=== PATIENT | male | born 1985 | race Caucasian/White ===

== ENCOUNTER 2020-11-08 10:04 | Emergency (ER) | payer BC, OTHER ==
[~2020-11-08] VITALS: Ht 172.7 cm; Wt 61.2 kg
[2020-11-08] MEDS ORDERED: GLUCAGON EMERGENCY 1 MG/KIT ONE (10:16)
--- NOTE | 2020-11-08 10:18 | ED General ---
General Chief Complaint: Foreign Body Stated Complaint: FOOD LODGED IN THROAT Source of Information: Patient History of Present Illness Date Seen by Provider: Nov 08, 2020 Time Seen by Provider: 10:13 Initial Comments 35-year-old male presents with food obstruction of his esophagus since 6 PM yesterday after dinner. States he ate a piece of meat and did not chew it very well and felt it stick in his throat. Denies any difficulty breathing, but since that time he has tried multiple different things to drink to try to get it to go through, but has been unsuccessful. States he cannot swallow his own spit and water comes right back up after a small swallow. Has had some near blockages before in the past as he states he typically does not chew his food well, but never has had anything to this extent that he was not able to get to go down himself. Denies any medical problems, he is on no medication. He does smoke. Allergies and Home Medications Allergies Coded Allergies: No Known Drug Allergies (Unverified , 11/08/20) Patient Home Medication List Home Medication List Reviewed: Yes Review of Systems Review of Systems Constitutional: No fever, No malaise, No weakness Respiratory: No cough, No short of breath, No stridor, No wheezing Cardiovascular: chest pain (from food stuck in throat); No edema, No palpitations Gastrointestinal: see HPI; No abdominal pain; dysphagia; No nausea; vomiting Musculoskeletal: No back pain, No joint pain Skin: No change in color, No rash Past Zmdxchk-Atheaw-Kxyayw Hx Past Med/Social Hx: Reviewed Nursing Past Med/Soc Hx Patient Social History Alcohol Use: Denies Use Smoking Status: Current Everyday Smoker Physical Exam Vital Signs Vital Signs - First Documented 11/08/20 10:09 Temp 37.0 Pulse 116 Resp 18 B/P (MAP) 138/100 (113) Pulse Ox 97 O2 Delivery Room Air Capillary Refill : Height, Weight, BMI Height: '" Weight: lbs. oz. kg; BMI Method: General Appearance: No Apparent Distress, WD/WN HEENT: PERRL/EOMI, Normal ENT Inspection Neck: Normal Inspection, Non Tender, Supple Respiratory: Chest Non Tender, Lungs Clear, Normal Breath Sounds, No Accessory Muscle Use, No Respiratory Distress Cardiovascular: Regular Rate, Rhythm, No Edema, No JVD, Normal Peripheral Pulses Gastrointestinal: Non Tender, Soft; No Distended, No Guarding, No Mass, No Rebound, No Tenderness Neurologic/Psychiatric: Alert, Oriented x3, No Motor/Sensory Deficits, Normal Mood/Affect Progress/Results/Core Measures Suspected Sepsis SIRS Temperature: Pulse: Respiratory Rate: Blood Pressure / Mean: Results/Orders My Orders Orders - RUY TYLER DO Glucagon Emergency Kit (Glucagon Emergen (11/08/20 10:30) Glucagon Emergency Kit (Glucagon Emergen (11/08/20 10:16) Medications Given in ED Current Medications Medications Dose Ordered Sig/Isabel Route Start Time Stop Time Status Last Admin Dose Admin Glucagon 1 mg ONCE ONCE IM 11/08/20 10:30 11/08/20 10:58 DC 11/08/20 10:26 1 MG Vital Signs/I&O 11/08/20 10:09 Temp 37.0 Pulse 116 Resp 18 B/P (MAP) 138/100 (113) Pulse Ox 97 O2 Delivery Room Air Capillary Refill : Progress Note : Progress Note Patient did not want an IV for a trial of glucagon, so given IV......no success. Still vomiting up sips of water. Departure Communication (Admissions) Time/Spoke to Consulting Phy: 10:[address] Valente (gen surg) - advised pt to come to [facility] to outpt surg for endoscopy. Patient has a family member to drive him by POV. Plans to go home after procedu re. Explained to pt and he expressed understanding. Impression Primary Impression: Esophageal obstruction due to food impaction Disposition: 30 STILL A PATIENT Condition: Stable Departure-Patient Inst. Referrals: RENATA ROYAL APRN (PCP) Primary Care Physician [facility] (Family) Primary Care Physician RUY TYLER DO Nov 08, 2020 10:18
[2020-11-08] MEDS ORDERED: GLUCAGON EMERGENCY 1 MG/KIT IM ONE (10:30)
[2020-11-08 11:00] VITALS: BP 144/88
[2020-11-08] MEDS ORDERED: ONDANSETRON 4 MG/2 ML (SDV) Z0FRAN ONE (11:34)
[2020-11-08] MEDS ORDERED: ROCURONIUM 10 MG/ML 5 ML SYRINGE IV ONE (11:34)
[2020-11-08] MEDS ORDERED: SUCCINYLCHOLINE INJ 100 MG/5 ML SYR/VIAL ONE (11:34)
[2020-11-08] MEDS ORDERED: PROPOFOL INJECTION 0 ML IV ONE (11:34)
[2020-11-08] MEDS ORDERED: fentaNYL INJ 100 MCG/2 ML AMP ONE (11:34)
[2020-11-08] MEDS ORDERED: MIDAZOLAM 2 MG/2 ML (VERSED) VIAL ONE (11:34)
[2020-11-08] MEDS ORDERED: SEVOFLURANE (ULTANE) 15 ML INHAL SOLN ONE (11:34)
== END 2020-11-08 11:00 | disposition left against medical advice (07) ==
LOC: EDUNIT# 10:04 → ER FS 10:06
DX: K22.2 Esophageal obstruction (principal); F17.200 Nicotine dependence, unspecified, uncomplicated
CPT/HCPCS: 99284

== ENCOUNTER 2020-12-02 09:47 | Emergency (ER) | payer SELFPAY ==
[2020-12-02 09:54] VITALS: BP 147/90
[2020-12-02] MEDS ORDERED: methylPREDNISolone 125 MG (Solu-MEDROL) VIAL IVP STA (10:10)
[2020-12-02] MEDS ORDERED: NS IV 1000 ML 1,000 ML IV STA (10:10)
[2020-12-02] MEDS ORDERED: RT-ALBUTEROL SULF 2.5 MG/3 ML PRE-MIX VIAL INH STA (10:10)
--- NOTE | 2020-12-02 10:18 | ED Respiratory ---
General Chief Complaint: Respiratory Problems Stated Complaint: SOB Nursing Triage Note: Has been increasingly sob over the past day and is coughing. Thinks he's had a fever at home but has not checked it. Has a nonproductive cough. hx of asthma that is treated with albuterol inhaler that he takes every day. Source: patient, EMS History of Present Illness Date Seen by Provider: December 02, 2020 Time Seen by Provider: 09:52 Initial Comments 35 yo male presenting by EMS from home with complaints of shortness of breath and wheezing. He reports a history of asthma and that he last got an inhaler of albuterol a week ago from [facility]. He has felt like he had a fever and chills since yesterday. He has had increased cough and wheezing and felt the inhaler was not helping today. Then his child had been playing with the inhaler this morning while the patient took a shower and the child sprayed out most of the medicine. He reports having a history of Pneumonia but it has been several years ago. He was at [facility] in for same day surgery procedure November 08 when he had esophageal food bolus that required EGD to remove it, but he did not stay overnight in the hospital. He denies ill contacts. He has non-produ ctive cough. He also smokes cigarettes at least a 1/2 ppd usually. Timing/Duration: yesterday Severity: severe Prior Episodes/Possible Cause: chronic episodes Modifying Factors: Worse With Coughing Associated Symptoms: chest pain/soreness (muscle pain from cough), cough, di zziness; No earache, No facial pain; fever/chills (subjective), lightheadedness, muscle aches, nasal congestion, shortness of breath, wheezing Allergies and Home Medications Allergies Coded Allergies: No Known Drug Allergies (Unverified , 11/08/20) Home Medications Albuterol Sulfate 1 Puff Puff, 2 PUFF IH Q4H PRN for WHEEZING 1 PUFF = 90 MCG Prescribed by: LUISA SANCHEZ on 12/02/20 1138 Azithromycin 250 Mg Tablet, 250 MG PO UD TAKE 2 TABLETS ON DAY ONE THEN TAKE 1 TABLET DAILY FOR FOUR MORE DAYS Prescribed by: LUISA SANCHEZ on 12/02/20 1138 Prednisone 20 Mg Tab, 40 MG PO DAILY Prescribed by: LUISA SANCHEZ on 12/02/20 1138 Patient Home Medication List Home Medication List Reviewed: Yes Review of Systems Review of Systems Constitutional: chills; No diaphoresis; dizziness, fever (subjective), malaise EENTM: nose congestion Respiratory: cough, dyspnea on exertion, short of breath, wheezing Cardiovascular: chest pain (chest wall pain from coughing) Gastrointestinal: no symptoms reported Genitourinary: no symptoms reported Musculoskeletal: no symptoms reported Skin: No rash Psychiatric/Neurological: Anxiety Hematologic/Lymphatic: Denies Blood Clots Past Hoiigsn-Dfykmk-Ibwdpq Hx Past Med/Social Hx: Reviewed Nursing Past Med/Soc Hx Patient Social History Alcohol Use: Denies Use Smoking Status: Current Everyday Smoker Type Used: Cigarettes 2nd Hand Smoke Exposure: Yes Recent Infectious Disease Expo: No Recent Hopitalizations: No Seasonal Allergies Seasonal Allergies: Yes Past Medical History Surgeries: Yes (egd) Respiratory: Yes Asthma Cardiac: No Neurological: No Genitourinary: No Gastrointestinal: Yes (esophageal food bolus October 2020) Musculoskeletal: No Endocrine: No HEENT: No Cancer: Yes (Referred to [facility] for "possible colon cancer") Colon Psychosocial: No Integumentary: No Blood Disorders: No Physical Exam Vital Signs - First Documented 12/02/20 09:54 Temp 36.8 Pulse 119 Resp 32 B/P (MAP) 147/90 (109) Pulse Ox 97 O2 Delivery Room Air Capillary Refill : Less Than 3 Seconds Height: '" Weight: lbs. oz. 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, alert, oriented x 3, other (anxious and working hard to breath) Skin: normal color, warm/dry; No rash Focused Exam Lactate Level 12/02/20 10:40: Lactic Acid Level 1.39 Lactic Acid Level Laboratory Tests Test 12/02/20 10:40 Lactic Acid Level 1.39 MMOL/L (0.50-2.00) Progress/Results/Core Measures Suspected Sepsis Recent Fever Within 48 Hours: Yes Infection Criteria Present: Suspected New Infection New/Unexplained Altered Menta: No Sepsis Screen: Possible Severe Sepsis Risk SIRS Temperature: Pulse: 119 Respiratory Rate: 32 Laboratory Tests 12/02/20 10:06: White Blood Count 8.9 Blood Pressure 147 /90 Mean: 109 12/02/20 10:40: Lactic Acid Level 1.39 Laboratory Tests 12/02/20 10:06: Creatinine 0.58L, Platelet Count 287, Total Bilirubin 0.2 Results/Orders Lab Results Laboratory Tests Test 12/02/20 10:06 12/02/20 10:40 12/02/20 11:59 Range/Units White Blood Count 8.9 4.3-11.0 10^3/uL Red Blood Count 4.65 4.35-5.85 10^6/uL Hemoglobin 14.5 13.3-17.7 G/DL Hematocrit 44 40-54 % Mean Corpuscular Volume 94 80-99 FL Mean Corpuscular Hemoglobin 31 25-34 PG Mean Corpuscular Hemoglobin Concent 33 32-36 G/DL Red Cell Distribution Width 13.2 10.0-14.5 % Platelet Count 287 130-400 10^3/uL Mean Platelet Volume 9.7 7.4-10.4 FL Immature Granulocyte % (Auto) 1 % Neutrophils (%) (Auto) 76 H 42-75 % Lymphocytes (%) (Auto) 11 L 12-44 % Monocytes (%) (Auto) 6 0-12 % Eosinophils (%) (Auto) 5 0-10 % Basophils (%) (Auto) 0 0-10 % Neutrophils # (Auto) 6.8 1.8-7.8 X 10^3 Lymphocytes # (Auto) 1.0 1.0-4.0 X 10^3 Monocytes # (Auto) 0.5 0.0-1.0 X 10^3 Eosinophils # (Auto) 0.5 H 0.0-0.3 10^3/uL Basophils # (Auto) 0.0 0.0-0.1 10^3/uL Immature Granulocyte # (Auto) 0.1 0.0-0.1 10^3/uL Blood Gas Puncture Site RT RADIAL Blood Gas Patient Temperature 36.8 Arterial Blood pH 7.43 7.37-7.43 Arterial Blood Partial Pressure CO2 39 35-45 MMHG Arterial Blood Partial Pressure O2 98 H 79-93 MMHG Arterial Blood HCO3 26 23-27 MMOL/L Arterial Blood Total CO2 27.1 21.0-31.0 MMOL/L Arterial Blood Oxygen Saturation 98 94-100 % Arterial Blood Base Excess 1.5 -2.5-2.5 MMOL/L Gennaro Test YES-POS Blood Gas Ventilator Setting NO Blood Gas Inspired Oxygen ROOM AIR Sodium Level 140 135-145 MMOL/L Potassium Level 4.1 3.6-5.0 MMOL/L Chloride Level 106 98-107 MMOL/L Carbon Dioxide Level 24 21-32 MMOL/L Anion Gap 10 5-14 MMOL/L Blood Urea Nitrogen 8 7-18 MG/DL Creatinine 0.58 L 0.60-1.30 MG/DL Estimat Glomerular Filtration Rate > 60 BUN/Creatinine Ratio 14 Glucose Level 109 H 70-105 MG/DL Calcium Level 8.9 8.5-10.1 MG/DL Corrected Calcium 8.9 8.5-10.1 MG/DL Magnesium Level 1.8 1.6-2.4 MG/DL Total Bilirubin 0.2 0.1-1.0 MG/DL Aspartate Amino Transf (AST/SGOT) 23 5-34 U/L Alanine Aminotransferase (ALT/SGPT) 25 0-55 U/L Alkaline Phosphatase 88 40-136 U/L C-Reactive Protein 0.57 H <0.50 MG/DL Total Protein 6.9 6.4-8.2 GM/DL Albumin 4.0 3.2-4.5 GM/DL Lactic Acid Level 1.39 0.50-2.00 MMOL/L Urine Color YELLOW Urine Clarity CLEAR Urine pH 6.0 5-9 Urine Specific Fisher 1.025 H 1.016-1.022 Urine Protein NEGATIVE NEGATIVE Urine Glucose (UA) NEGATIVE NEGATIVE Urine Ketones NEGATIVE NEGATIVE Urine Nitrite NEGATIVE NEGATIVE Urine Bilirubin NEGATIVE NEGATIVE Urine Urobilinogen 0.2 < = 1.0 MG/DL Urine Leukocyte Esterase NEGATIVE NEGATIVE Urine RBC (Auto) NEGATIVE NEGATIVE Urine RBC NONE /HPF Urine WBC RARE /HPF Urine Squamous Epithelial Cells 0-2 /HPF Urine Crystals NONE /LPF Urine Bacteria NEGATIVE /HPF Urine Casts NONE /LPF Urine Mucus SMALL H /LPF Urine Culture Indicated NO Urine Opiates Screen NEGATIVE NEGATIVE Urine Oxycodone Screen NEGATIVE NEGATIVE Urine Methadone Screen NEGATIVE NEGATIVE Urine Propoxyphene Screen NEGATIVE NEGATIVE Urine Barbiturates Screen NEGATIVE NEGATIVE Ur Tricyclic Antidepressants Screen NEGATIVE NEGATIVE Urine Phencyclidine Screen NEGATIVE NEGATIVE Urine Amphetamines Screen POSITIVE H NEGATIVE Urine Methamphetamines Screen POSITIVE H NEGATIVE Urine Benzodiazepines Screen NEGATIVE NEGATIVE Urine Cocaine Screen NEGATIVE NEGATIVE Urine Cannabinoids Screen NEGATIVE NEGATIVE My Orders Orders - LUISA SANCHEZ MD Cbc With Automated Diff (12/02/20 10:08) Comprehensive Metabolic Panel (12/02/20 10:08) Blood Culture (12/02/20 10:08) Chest 1 View Ap/Pa Only (12/02/20 10:08) Magnesium (12/02/20 10:08) Ekg Tracing (12/02/20 10:08) O2 (12/02/20 10:08) Ed Iv/Invasive Line Start (12/02/20 10:08) Sputum Culture (12/02/20 10:08) Monitor-Rhythm Ecg Trace Only (12/02/20 10:08) Crp Fs (12/02/20 10:08) Lactic Acid Analyzer (12/02/20 10:08) Arterial Blood Gas (12/02/20 10:08) Ns Iv 1000 Ml (Sodium Chloride 0.9%) (12/02/20 10:10) Methylprednisolone Sod Succ (Solu-Medrol (12/02/20 10:10) Ua Culture If Indicated (12/02/20 10:10) Drug Screen Stat (Urine) (12/02/20 10:10) Albuterol Pre-Mix Nebs (Rt) (Proventil (12/02/20 10:10) Svn Small Volume Nebulizer (12/02/20 10:10) Vital Signs/I&O 12/02/20 09:54 Temp 36.8 Pulse 119 Resp 32 B/P (MAP) 147/90 (109) Pulse Ox 97 O2 Delivery Room Air Capillary Refill : Less Than 3 Seconds Blood Pressure Mean: 109 Progress Note #1: Progress Note Obtain labs including blood cultures with lactic acid and an ABG. UA to check hydration and drug screen to look for other reasons for his wheezing and increased dyspnea. CXR to check for pneumonia, effusion, mass, reason for his wheezing/dyspnea. Give Solumedrol 125 mg IV for wheezing and inflammation to see if that will help with his symptoms from an asthma standpoint. Repeat albuterol nebulizer. May require COVID swab as well and will continue with respiratory precautions due to his complaint of fever at home, cough and dyspnea with wheezing. His oxygen saturation is 96% on room air while I am in the room speaking to him and performing exam and obtaining history. However, he does appear anxious and is working hard to breath and can only speak in 3-4 word sent ences. Differential diagnosis includes asthma exacerbation, pneumonia, Covid infection, aspiration, flash pulmonary edema, heart failure, COPD Progress Note #2: Progress Note Chest x-ray is clear without acute infiltrate or effusion. His labs did not show an elevated white blood cell count. His chemistry panel was not showing acute significant abnormality. His ABG shows normal pH 7.43, pCO2 39, pO2 98 on room air. Lactic acid normal at 1.39. Despite IVF, Solumedrol and repeated breathing treatments he was still working hard to breath and wheezing. I advised the patient that I would recommend admission to the hospital for steroids and repeated breathing treatments. Patient had initially said that he would be willing to do this but now is refusing. He states that he has breathing treatments and can get script for steroid and antibiotic and treat at home. I advised him that he could very well have his airway close off with the asthma and actually with severe asthma exacerbation. Patient stated that he understood and still did not want to be admitted. He felt like he could manage this at home if he got prescriptions. Initially advised that antibiotics would not help but since he is a smoker and could have an atypical infection will prescribe a Z-Dominick. In addition steroids for 5 days and refill his albuterol inhaler since he states that his child had emptied it this morning. Despite trying to talk him out of it he continued with his decision to leave AGAINST MEDICAL ADVICE. Given return precautions and follow-up advised. Progress Note #3: Progress Note After patient had already left his urine results came back and did demonstrate that he had methamphetamines in his system which could certainly also aggravate his breathing. ECG Initial ECG Impression Date: December 02, 2020 Initial ECG Impression Time: 11:10 Initial ECG Rate: 105 Initial ECG Rhythm: S.Tach Initial ECG Comparisson: No Previous ECG Available Comment Sinus tachycardia with a heart rate of 105 bpm. MI interval [address] elevation. QT interval 329 ms with a QTc interval 435 ms. There is no prior tracing available for comparison. Diagnostic Imaging Diagonstic Imaging: Xray Plain Films/CT/US/NM/MRI: chest Comments NAME: HAKEEM SORIANO [facility] REC#: [id number] PT STATUS: REG ER : 1985 PHYSICIAN: LUISA SANCHEZ MD ADMIT DATE: 12/02/20/ER FS Draft Date of Exam:12/02/20 CHEST 1 VIEW AP/PA ONLY INDICATION: Shortness of breath Portable chest 10:14 AM Heart size and pulmonary vascularity are normal. Lungs are clear. There are no effusions or pneumothoraces. IMPRESSION: Negative chest Dictated on workstation # [id number] Dict: 12/02/20 1034 Trans: 12/02/20 1035 CVB [id number] Interpreted by: MILTON NUÑEZ MD Electronically signed by: Reviewed: Reviewed by Me Departure Impression Primary Impression: Acute severe exacerbation of asthma Additional Impressions: Dyspnea Qualified Codes: R06.03 - Acute respiratory distress Tobacco abuse Left against medical advice Methamphetamine abuse Disposition: AGAINST MEDICAL ADVICE Condition: Against Medical Advice Departure-Patient Inst. Decision time for Depature: 11:40 Referrals: RENATA ROYAL APRN (PCP) Primary Care Physician [facility] (Family) Primary Care Physician Patient Instructions: Leaving Against Medical Advice, Asthma, Adult ED, Quitting Smoking Add. Discharge Instructions: You are leaving AGAINST MEDICAL ADVICE. Make sure to take medicine as prescribed to help with asthma and breathing. Check with clinic for continued concerns and seek medical care immediately for worsening symptoms. All discharge instructions reviewed with patient and/or family. Voiced understanding. Scripts Prednisone (Prednisone) 20 Mg Tab 40 MG PO DAILY for asthma exacerbation for 5 Days, #10 TAB 0 Refills Prov: LUISA SANCHEZ MD 12/02/20 Albuterol Sulfate (PROAIR HFA) 1 Puff Puff 2 PUFF IH Q4H PRN for WHEEZING for 30 Days, #1 INHALER 0 Refills 1 PUFF = 90 MCG Prov: LUISA SANCHEZ MD 12/02/20 Azithromycin (Azithromycin) 250 Mg Tablet 250 MG PO UD for 5 Days, #6 TAB 0 Refills TAKE 2 TABLETS ON DAY ONE THEN TAKE 1 TABLET DAILY FOR FOUR MORE DAYS Prov: LUISA SANCHEZ MD 12/02/20 LUISA SANCHEZ MD December 02, 2020 10:18
--- NOTE | 2020-12-02 10:35 | Diagnostic Imaging Report ---
INDICATION: Shortness of breath Portable chest 10:14 AM Heart size and pulmonary vascularity are normal. Lungs are clear. There are no effusions or pneumothoraces. IMPRESSION: Negative chest Dictated by: Dictated on workstation # [id number]
[2020-12-02 10:43] LABS: BASOPHILS % (AUTO) 0 % (0-10); EOSINOPHILS # (AUTO) 0.5 10^3/uL (0.0-0.3); EOSINOPHILS % (AUTO) 5 % (0-10); HEMATOCRIT 44 % (40-54); HEMOGLOBIN 14.5 G/DL (13.3-17.7); LYMPHOCYTES % (AUTO) 11 % (12-44); MEAN CORPUSCULAR HEMOGLOBIN 31 PG (25-34); MEAN CORPUSCULAR HGB CONC 33 G/DL (32-36); MEAN CORPUSCULAR VOLUME 94 FL (80-99); MEAN PLATELET VOLUME 9.7 FL (7.4-10.4); MONOCYTES # (AUTO) 0.5 X 10^3 (0.0-1.0); MONOCYTES % (AUTO) 6 % (0-12); NEUTROPHILS # (AUTO) 6.8 X 10^3 (1.8-7.8); NEUTROPHILS % (AUTO) 76 % (42-75); PLATELET COUNT 287 10^3/uL (130-400); WHITE BLOOD COUNT 8.9 10^3/uL (4.3-11.0)
[2020-12-02 10:44] LABS: SODIUM 140 MMOL/L (135-145)
[2020-12-02 10:45] LABS: ALANINE AMINOTRANSFERASE 25 U/L (0-55); ALKALINE PHOSPHATASE 88 U/L (40-136); BILIRUBIN,TOTAL 0.2 MG/DL (0.1-1.0); BUN/CREATININE RATIO 14; CALCIUM 8.9 MG/DL (8.5-10.1); CARBON DIOXIDE 24 MMOL/L (21-32); CHLORIDE 106 MMOL/L (98-107); CREATININE SERUM 0.58 MG/DL (0.60-1.30); GFR ESTIMATED > 60; GLUCOSE 109 MG/DL (70-105); MAGNESIUM 1.8 MG/DL (1.6-2.4); POTASSIUM 4.1 MMOL/L (3.6-5.0); TOTAL PROTEIN 6.9 GM/DL (6.4-8.2)
[2020-12-02 10:46] LABS: ABG BASE EXCESS 1.5 MMOL/L (-2.5-2.5); ABG OXYGEN SATURATION 98 % (94-100); ABG PCO2 39 MMHG (35-45); ABG PH 7.43 (7.37-7.43); ABG PO2 98 MMHG (79-93); ABG TCO2 27.1 MMOL/L (21.0-31.0); ALLENS TEST YES-POS
[2020-12-02 10:47] LABS: INSPIRED O2 ROOM AIR; PATIENT TEMP 36.8; VENTILATOR NO
[2020-12-02] MEDS ORDERED: AZIT250T12 PO (11:38)
[2020-12-02] MEDS ORDERED: PRD20T PO (11:38)
[2020-12-02] MEDS ORDERED: RT-ALBUINH IH (11:38)
[2020-12-02 12:43] LABS: BACTERIA,URINE NEGATIVE /HPF; BILIRUBIN,URINE NEGATIVE (NEGATIVE); CLARITY,URINE CLEAR; COLOR,URINE YELLOW; GLUCOSE, URINE (UA) NEGATIVE (NEGATIVE); KETONES,URINE NEGATIVE (NEGATIVE); LEUKOCYTE ESTERASE ,URINE NEGATIVE (NEGATIVE); NITRITE,URINE NEGATIVE (NEGATIVE); PROTEIN,URINE NEGATIVE (NEGATIVE); SQUAMOUS EPITHELIAL CELL,UR 0-2 /HPF; WBC,URINE RARE /HPF
[2020-12-02 12:44] LABS: AMPHETAMINE SCREEN, URINE POSITIVE (NEGATIVE); BARBITURATE SCREEN URINE NEGATIVE (NEGATIVE); BENZODIAZEPINES SCREEN URINE NEGATIVE (NEGATIVE); CANNABINOID SCREEN, URINE NEGATIVE (NEGATIVE); COCAINE SCREEN URINE NEGATIVE (NEGATIVE); METHADONE STAT NEGATIVE (NEGATIVE); METHAMPHETAMINE SCREEN URINE S POSITIVE (NEGATIVE); OPIATE SCREEN URINE NEGATIVE (NEGATIVE); OXYCODONE STAT NEGATIVE (NEGATIVE); PROPOXYPHENE STAT NEGATIVE (NEGATIVE); TRICYCLIC ANTIDEPRESSANTS SCRE NEGATIVE (NEGATIVE)
== END 2020-12-02 11:52 | disposition left against medical advice (07) ==
LOC: EDUNIT# 09:47 → ER FS 09:48
DX: J45.901 Unspecified asthma with (acute) exacerbation (principal); F15.10 Other stimulant abuse, uncomplicated; R00.0 Tachycardia, unspecified; F17.210 Nicotine dependence, cigarettes, uncomplicated
CPT/HCPCS: 36415; 71045; 80053; 80306; 81000; 82805; 83605; 83735; 85025; 86141; 87040; 93005; 93041

== ENCOUNTER 2021-06-23 20:45 | Emergency (ER) | payer SELFPAY ==
[~2021-06-23] VITALS: Ht 172.7 cm; Wt 72.1 kg
[~2021-06-23 20:45] MED LIST: AZIT250T12 PO; PRD20T PO; RT-ALBUINH IH
[2021-06-23 20:50] VITALS: BP 142/88
--- OUTSIDE RECORDS SUMMARY | 2021-06-23 20:52 | XMS REPORT | Clinical Summary ---
Author Author [facility] Organization [facility] Address Unknown Phone Unavailable Care Team Providers Care Animal Eviscerator Name Role Phone Tommy Hernandez APRN PCP Allergies No known active allergies Medications End Date Status Medication Sig Dispensed Refills Start Date 11/08/2021 Active omeprazole (PRILOSEC) 40 Take 1 90 capsule 3 0 MG capsule capsule (40 1 mg total) by mouth daily. Active Problems Not on file Social History Date Tobacco Use Types Packs/Day Years Used Current Every Day Smoker Cigarettes 1 Smokeless Tobacco: Never Used Comments Alcohol Use Standard Drinks/Week Never 0 (1 standard drink = 0.6 o z pure alcohol) Alcohol Habits Answer Date Recorded How often do you have a drink containing alcohol? Never 11/08/2020 How many drinks containing alcohol do you have on No t asked a typical day when you are drinking? How often do you have six or more drinks on one Not asked occasion? Comment: Not asked Sex Assigned at Date Recorded Not on file Last Filed Vital Signs Reading Time Taken Comments Vital Sign 118/86 11/08/2020 7:15 PM CDT Blood Pressure 72 11/08/2020 7:15 PM CDT Pulse 36.3 C (97.4 F) 11/08/2020 7:15 PM CDT Temperature 18 11/08/2020 7:15 PM CDT Respiratory Rate 100% 11/08/2020 7:15 PM CDT Oxygen Saturation - - Inhaled Oxygen Concentration 61.2 kg (135 lb) 11/08/2020 2:10 PM CDT Weight 172.7 cm (5' 8") 11/08/2020 2:10 PM CDT Height 20.53 11/08/2020 2:10 PM CDT Body Mass Index Plan of Treatment Health Maintenance Due Date Last Done Comments Td/Tdap# 1985 Tobacco Cessation 1987 Counseling # COVID-19 Vaccine (1) 1992 Pneumococcal Vaccine: 1993 Pediatrics (0 to 5 Years) and At-Risk Patients (6 to 64 Years) (1 of 2 - PPSV23) Influenza Vaccine (#1) 2021 Results Not on filefrom Last 3 Months Advance Directives For more information, please contact: [phone] Patient [place] Operator Explanation Type Date Recorded Health Care Directive Care Teams Start Date End Date Animal Eviscerator Relationship Specialty 11/08/20 Tommy Hernandez APRN PCP - General Nurse [id number] [place] [address]
--- OUTSIDE RECORDS SUMMARY | 2021-06-23 20:52 | XMS REPORT | Clinical Summary ---
Author Author [facility] Organization [facility] Address Unknown Phone Unavailable Care Team Providers Care Cricket Coach Name Role Phone PCP Unavailable Source Comments Some departments are not documenting in the electronic medical record. If you d o not see the information that you expected, contact Release of Information in [facility] Information Management department at [phone] for further assistan ce in locating additional records.[facility] Allergies Not on File Medications Not on file Active Problems Not on file Social History Date Tobacco Use Types Packs/Day Years Used Never Assessed Sex Assigned at Date Recorded Male 01/21/2021 12:02 PM CDT Last Filed Vital Signs Not on file Plan of Treatment Health Maintenance Due Date Last Done Comments HIV SCREENING 2002 DTAP/TDAP VACCINES (1 - 2005 Tdap) HEPATITIS C SCREENING 2005 PHYSICAL (COMPREHENSIVE) 2005 EXAM INFLUENZA VACCINE 02/16/2021 Results Not on filefrom Last 3 Months Advance Directives Patient Loan Interviewer Mortgage Explanation Type Date Recorded Advance Directive/DPOA
[2021-06-23] MEDS ORDERED: morphine INJ 10 MG/ML 1ML (SYR OR VIAL) IVP STA (20:58)
[2021-06-23] MEDS ORDERED: ONDANSETRON 4 MG/2 ML (SDV) Z0FRAN IVP ONE (21:00)
--- NOTE | 2021-06-23 21:08 | ED General ---
General Chief Complaint: - Reproductive Stated Complaint: RT SIDE GROIN PAIN Nursing Triage Note: Patient states that he has inguinal hernias that he was supposed to follow up on but hasn't. Patient states that at approximately 11:30, he felt a pop in the right inguinal area. Patient states that he feels like its swollen. Patient would like to get it checked out. History of Present Illness Date Seen by Provider: Jun 23, 2021 Time Seen by Provider: 21:04 Initial Comments Patient presenting to the emergency department for evaluation of bilateral lower abdominal pain that has been going on for months and he said he was diagnosed with bilateral inguinal hernias and was told to follow with a GI specialist at [place] but has not. I asked if he meant a general surgeon and he said no they wanted him to see a GI specialist. Patient says that the pain is worse in the right side of his abdomen and goes towards his testicles. He says that he does have some pain with urination but no discharge. He denies hematuria fevers chills nausea vomiting diarrhea constipation. He denies prior abdominal surgeries. He is in no acute distress with normal vital signs. Allergies and Home Medications Allergies Coded Allergies: No Known Drug Allergies (Unverified , 11/08/20) Patient Home Medication List Home Medication List Reviewed: Yes Albuterol Sulfate (Proair Hfa) 1 Puff Puff, 2 PUFF IH Q4H PRN for WHEEZING Prescribed by: LUISA SANCHEZ on 12/02/20 1138 Azithromycin (Azithromycin) 250 Mg Tablet, 250 MG PO UD Prescribed by: LUISA SANCHEZ on 12/02/20 1138 Prednisone (Prednisone) 20 Mg Tab, 40 MG PO DAILY Prescribed by: LUISA SANCHEZ on 12/02/20 1138 Review of Systems Review of Systems Constitutional: no symptoms reported EENTM: no symptoms reported Respiratory: no symptoms reported Cardiovascular: no symptoms reported Gastrointestinal: abdominal pain Genitourinary: dysuria Musculoskeletal: no symptoms reported Skin: no symptoms reported Psychiatric/Neurological: No Symptoms Reported Past Aiwrtpp-Zavesd-Oomuds Hx Patient Social History Tobacco Use?: Yes Smoking Status: Current Everyday Smoker Substance use?: No Alcohol Use?: No Pt feels they are or have been: No Seasonal Allergies Seasonal Allergies: Yes Past Medical History Surgery/Hospitalization HX: Inguinal Hernia Surgeries: Yes (egd) Respiratory: Yes Asthma Cardiac: No Neurological: No Genitourinary: No Gastrointestinal: Yes (esophageal food bolus October 2020) Musculoskeletal: No Endocrine: No HEENT: No Cancer: Yes (Referred to [facility] for "possible colon cancer") Colon Psychosocial: No Integumentary: No Blood Disorders: No Physical Exam Vital Signs Vital Signs - First Documented 06/23/21 20:50 Temp 37.0 Pulse 89 Resp 18 B/P (MAP) 142/88 (106) Pulse Ox 100 O2 Delivery Room Air Capillary Refill : Less Than 3 Seconds Height, Weight, BMI Height: '" Weight: lbs. oz. kg; 24.00 BMI Method: General Appearance: No Apparent Distress, WD/WN Respiratory: Lungs Clear, No Respiratory Distress Cardiovascular: Regular Rate, Rhythm Gastrointestinal: Soft, Tenderness (Bilateral lower quadrant tenderness to palpation with no rebound or guarding. I palpated his inguinal region bilaterally and he said he was having pain where he felt a hernia in his right i nguinal region but I am palpating a lymph node and that is where he says he is hurting the most.) Genital/Rectal: Normal Genital Exam, Other (Testicles are nonswollen and there is no pain to palpation of the testicles and they are normal lie with no signs of torsion.) Neurologic/Psychiatric: Alert, Oriented x3 Skin: Warm/Dry Progress/Results/Core Measures Suspected Sepsis SIRS Temperature: Pulse: 89 Respiratory Rate: 18 Blood Pressure 142 /88 Mean: 106 Results/Orders Lab Results Laboratory Tests Test 06/23/21 21:05 Range/Units Urine Color YELLOW Urine Clarity CLEAR Urine pH 6.5 5-9 Urine Specific [place] 1.025 H 1.016-1.022 Urine Protein NEGATIVE NEGATIVE Urine Glucose (UA) NEGATIVE NEGATIVE Urine Ketones NEGATIVE NEGATIVE Urine Nitrite NEGATIVE NEGATIVE Urine Bilirubin NEGATIVE NEGATIVE Urine Urobilinogen 0.2 < = 1.0 MG/DL Urine Leukocyte Esterase NEGATIVE NEGATIVE Urine RBC (Auto) NEGATIVE NEGATIVE Urine RBC NONE /HPF Urine WBC RARE /HPF Urine Squamous Epithelial Cells RARE /HPF Urine Crystals NONE /LPF Urine Bacteria NEGATIVE /HPF Urine Casts NONE /LPF Urine Mucus SMALL H /LPF Urine Culture Indicated NO My Orders Orders - BANG GENAO DO Ua Culture If Indicated (06/23/21 20:58) Ct Abdomen/Pelvis W (06/23/21 20:58) Iv/Invasive Line Insertion .IV start (06/23/21 20:58) Morphine Injection (Morphine Injection (06/23/21 20:58) Ondansetron Injection (Zofran Injectio (06/23/21 21:00) Iohexol Injection (Omnipaque 350 Mg/Ml 1 (06/23/21 21:15) Received Contrast (Hold Metformin- Contr (06/23/21 21:15) Sodium Chloride Flush (Catheter Flush Sy (06/23/21 21:15) Ns (Ivpb) (Sodium Chloride 0.9% Ivpb Bag (06/23/21 21:15) Hydrocodone/Apap 5/325 Tablet (Lortab 5 (06/23/21 21:45) Vital Signs/I&O 06/23/21 20:50 Temp 37.0 Pulse 89 Resp 18 B/P (MAP) 142/88 (106) Pulse Ox 100 O2 Delivery Room Air Capillary Refill : Less Than 3 Seconds Blood Pressure Mean: 106 Progress Note : Progress Note Patient is hurting over a lymph node in his right inguinal region. He may have a hernia in his left inguinal region. I will check labs imaging treat symptoms and reassess. Of note I do not have access to ultrasound here at the freestanding emergency department so torsion cannot Be completely ruled out but there is no signs of torsion on his physical exam. I discussed if he wants to have torsion completely ruled out I would have to transfer him to another facility to have this done and he did not want to go anywhere. Both nurses attempted IVs with no success. I then attempted to ultrasound- guided IVs in his right arm and was able to draw some blood but the IV did not thread. Patient then said he wanted no further testing in the emergency department and wanted to leave. He was unwilling to get the CT scan with or without contrast and said that he wants oral pain medications and wants to le ave. I told him that I have not been able to rule out acute life-threatening pathology and that he could suffer and disability by leaving without a full work-up. He verbalized understanding and accepted the risks of and disability. He has capacity to make his own medical decisions. He signed paperwork stating that he refused work-up in the emergency department and walked out of the emergency department under his own power. Departure Impression Primary Impression: Abdominal pain Qualified Codes: R10.30 - Lower abdominal pain, unspecified Disposition: 01 HOME, SELF-CARE Condition: Stable Departure-Patient Inst. Referrals: ERNATA ROYAL APRN (PCP) Primary Care Physician [facility]/JULIO C (Family) Primary Care Physician Patient Instructions: Acute Pain, Adult (DC) BANG GENAO DO Jun 23, 2021 21:08
[2021-06-23 21:14] LABS: BILIRUBIN,URINE NEGATIVE (NEGATIVE); CLARITY,URINE CLEAR; COLOR,URINE YELLOW; GLUCOSE, URINE (UA) NEGATIVE (NEGATIVE); KETONES,URINE NEGATIVE (NEGATIVE); LEUKOCYTE ESTERASE ,URINE NEGATIVE (NEGATIVE); NITRITE,URINE NEGATIVE (NEGATIVE); PH,URINE 6.5 (5-9); PROTEIN,URINE NEGATIVE (NEGATIVE)
[2021-06-23] MEDS ORDERED: IOHEXOL 350 MG/ML 100 ML (OMNIPAQUE 350) VIAL IV ONE (21:15)
[2021-06-23] MEDS ORDERED: HOLD METFORMIN - RECEIVED CONTRAST 20 ML VIAL IV SCH (21:15)
[2021-06-23] MEDS ORDERED: CATHETER FLUSH 10 ML SYR IV PRN (21:15)
[2021-06-23] MEDS ORDERED: NS 100 ML (IVPB) BAG IV ONE (21:15)
[2021-06-23 21:21] LABS: BACTERIA,URINE NEGATIVE /HPF; WBC,URINE RARE /HPF
[2021-06-23 21:22] LABS: SQUAMOUS EPITHELIAL CELL,UR RARE /HPF
[2021-06-23] MEDS ORDERED: HYDROcodone/APAP 5 MG/325 MG (LORTAB) TAB PO ONE (21:45)
[2021-06-23] MEDS ORDERED: HYDROcodone/APAP 5 MG/325 MG (LORTAB) TAB ONE (21:54)
== END 2021-06-23 21:55 | disposition home or self-care (01) ==
LOC: EDUNIT# 20:45 → ER FS 20:48
DX: R10.31 Right lower quadrant pain (principal); R10.32 Left lower quadrant pain; J45.909 Unspecified asthma, uncomplicated; F17.290 Nicotine dependence, other tobacco product, uncomplicated
CPT/HCPCS: 81000; 99283